=== PATIENT | male | born 1985 | race American Indian/Alaskan Native ===

== ENCOUNTER 2017-05-24 11:09 | Emergency (ER) | payer SELFPAY ==
[2017-05-24 11:21] VITALS: BP 126/70
[2017-05-24 12:39] LABS: Bilirubin,Urine NEG (Negative); Blood,Urine SM (Negative); Color,Urine Straw (Yellow); Protein,Urine <15 mg/dL mg/dL (Negative); Urobilinogen,Urine < 2.0 mg/dL (<2.0); WBC,Urine < 1.0 /HPF (0.0-6.0)
[2017-05-24] MEDS ORDERED: XYLOCAINE 1% MPF 5 mL INFILTRATI ONE (12:46)
[2017-05-24] MEDS ORDERED: ZITHROMAX PO ONE (12:46)
[2017-05-24] MEDS ORDERED: ROCEPHIN IM ONE (12:46)
--- NOTE | 2017-05-24 12:47 | Emergency Department Report ---
ED Male HPI - General Chief complaint: Medical Clearance Stated complaint: STD CHECK/ITCHING Time Seen by Provider: 05/24/17 12:12 Source: patient Mode of arrival: Ambulatory Limitations: No Limitations - History of Present Illness Initial comments: This is a 32-year-old male nontoxic, well nourished in appearance, no acute signs of distress presents to the ED with c/o of penile discharge x1 week. Patient stated he had sexual intercourse last month without protection and then developed these symptoms. Patient denies any urinary symptoms. Patient deneis any testcular pain or swelling. Patient denies any chest pain, shortness of breathe, fever, chills, headache, or stiff neck. PAtient denies any allergies or PMH. MD Complaint: penile discharge -: week(s) (1) Location: penis Radiation: none Severity scale (0 -10): 0 Improves with: none Worsens with: none discharge. denies: swelling, mass, rash, urinary retention, blood in urine, dysuria, fever, nausea/vomiting, incontinence - Related Data Allergies Allergy/AdvReac Type Severity Reaction Status Date / Time No Known Allergies Allergy Unverified 05/24/17 11:21 ED Review of Systems ROS: Stated complaint: STD CHECK/ITCHING Other details as noted in HPI Constitutional: denies: chills, fever Eyes: denies: eye pain, eye discharge, vision change ENT: denies: ear pain, throat pain Respiratory: denies: cough, shortness of breath, wheezing Cardiovascular: denies: chest pain, palpitations Endocrine: no symptoms reported Gastrointestinal: denies: abdominal pain, nausea, diarrhea Genitourinary: denies: urgency, dysuria Musculoskeletal: denies: back pain, joint swelling, arthralgia Skin: denies: rash, lesions Neurological: denies: headache, weakness, paresthesias Psychiatric: denies: anxiety, depression Hematological/Lymphatic: denies: easy bleeding, easy bruising ED Past Medical Hx - Past Medical History Previous Medical History?: No ED Physical Exam - General Limitations: No Limitations General appearance: alert, in no apparent distress - Head Head exam: Present: atraumatic, normocephalic - Eye Eye exam: Present: normal appearance - ENT ENT exam: Present: mucous membranes moist - Neck Neck exam: Present: normal inspection - Respiratory Respiratory exam: Present: normal lung sounds bilaterally. Absent: respiratory distress - Cardiovascular Cardiovascular Exam: Present: regular rate, normal rhythm. Absent: systolic murmur, diastolic murmur, rubs, gallop - GI/Abdominal GI/Abdominal exam: Present: soft, normal bowel sounds - Rectal Rectal exam: Present: deferred - exam: Present: normal inspection. Absent: testicular tenderness, urethral discharge, scrotal swelling, vertical testicular lie External exam: Present: normal external exam. Absent: erythema, swelling, lesions, lacerations, ecchymosis, bleeding - Extremities Exam Extremities exam: Present: normal inspection - Back Exam Back exam: Present: normal inspection - Neurological Exam Neurological exam: Present: alert, oriented X3 - Psychiatric Psychiatric exam: Present: normal affect, normal mood - Skin Skin exam: Present: warm, dry, intact, normal color. Absent: rash ED Course Vital Signs 05/24/17 11:18 Temperature 97.6 F Pulse Rate 57 L Respiratory 18 Rate Blood Pressure 126/70 O2 Sat by Pulse 99 Oximetry - Reevaluation(s) Reevaluation #1: 05/24/17 13:11 Patient is speaking in full sentences with no signs of distress noted. ED Medical Decision Making - Medical Decision Making male that presents with possible Esidrix exposure. Patient stable was examined by me. UA within normal limits. Gonorrhea and Chlamydia pending patient received empirical treatment of Rocephin and azithromycin. He was instructed to return in 3 days to obtain results of gonorrhea chlamydia. At time of discharge, the patient does not seem toxic or ill in appearance. No acute signs of distress noted. Patient agrees to discharge treatment plan of care. No further questions noted by the patient. Critical care attestation.: If time is entered above; I have spent that time in minutes in the direct care of this critically ill patient, excluding procedure time. ED Disposition Clinical Impression: Possible exposure to STD Disposition: DC-01 TO HOME OR SELFCARE Is pt being admited?: No Does the pt Need Aspirin: No Condition: Stable Instructions: Safe Sex (ED) Additional Instructions: Follow-up with a primary care doctor in 3-5 days or if symptoms worsen and continue return to emergency room as soon as possible. Referrals: PAULA GAXIOLA MD [Primary Care Provider] - 3-5 Days PRIMARY CARE, [Referring] - 3-5 Days [facility] [Outside] - 3-5 Days [facility] [Outside] - 3-5 Days Forms: Work/School Release Form(ED)
== END 2017-05-24 13:23 | disposition home or self-care (01) ==
LOC: ED 11:09
DX: R36.9 Urethral discharge, unspecified (principal)
CPT/HCPCS: 81001; 87591; 96372; 99283; J0696